=== PATIENT | female | born 1985 | race Caucasian/White ===

== ENCOUNTER → 2021-03-13 | Outpatient (CLI) | payer MEDICARE, OTHER ==
--- NOTE | 2021-03-14 09:58 | XR ---
EXAMINATION TYPE: XR scoliosis survey, 2 views of biopsy in 1 DATE OF EXAM: 03/13/2021 Comparison: None Clinical History: 35-year-old female R52. Gradual pain, surgery in 1999 and 2000. Findings: Extensive posterior thoracolumbar fusion changes are present. Possible break in the vertical stabiliz ation vincenzo at the L5-S1 junction on the right. There is an S-shaped rotary scoliosis of the thoracic and lumbar spine. Dextroconvex curvature of the thoracic spine has a Olivas angle of 32 degrees. Levoconvex scoliosis of the lumbar spine as a Olivas an gle of 51 degrees. Difficult to exclude some widening at the left SI joint. Shortness bilateral femoral necks and angula tion at the sacrococcygeal junction. Impression: 1. Extensive thoracolumbar fusion hardware extending down to the sacrum. Possible break in the vertic al stabilization vincenzo on the right at the L5-S1 junction. 2. Rotary S-shaped thoracolumbar scoliosis. Dextroconvex thoracic Olivas angle of 32 degrees and levoco nvex lumbar Olivas angle of 51 degrees. 3. Possible widening at the left SI joint.
== END | disposition home or self-care (01) ==
LOC: RADXRMAIN 15:10
PROVIDERS: ATTEND Physician Assistant Medical
DX: M41.85 Other forms of scoliosis, thoracolumbar region (principal); M43.25 Fusion of spine, thoracolumbar region
CPT/HCPCS: 72082

== ENCOUNTER → 2021-03-28 | Outpatient (CLI) | payer MEDICARE, OTHER ==
--- NOTE | 2021-03-28 16:32 | CT ---
EXAMINATION TYPE: CT lumbar spine wo con DATE OF EXAM: 03/28/2021 COMPARISON: None HISTORY: known rt vincenzo rx, r/o lt vincenzo fx CT DLP: 452.3 mGycm CONTRAST: None TECHNIQUE: CT of the lumbar spine is performed on a spiral scan at 3 mm thick sections. Reconstructed images are performed in the coronal and sagittal planes. FINDINGS: There is a severe scoliosis present with convexity to the left. Pedicle screws are present L5-S1-S2. There is diffuse loss of disc height throughout the thoracic spine. Vertebral body heights appear pre served. No focal disc herniations are evident. AP spinal canal stenosis is not identified.. Some foraminal narrowing is present. Severe stenosis is not identified. Attention is paid to the right L5-S1 junction. In the sagittal plane there appears to be a gap at the fixation vincenzo and pedicle screw junction of L5. Example image series 7 image 20 suggestive for fractu re similar to appears to be in the coronal plane, series 6 image 34. IMPRESSION: 1. Severe scoliosis with post fixation rods and pedicle screws present. 2. Findings suggestive for nondisplaced fixation vincenzo fracture at the right L5 pedicle screw junction level
== END | disposition home or self-care (01) ==
LOC: RADCTMAIN 07:10
PROVIDERS: ATTEND Physician Assistant Medical
DX: M41.86 Other forms of scoliosis, lumbar region (principal); Z98.1 Arthrodesis status
CPT/HCPCS: 72131

== ENCOUNTER → 2023-05-15 | Outpatient (CLI) | payer MEDICARE, OTHER ==
--- NOTE | 2023-05-15 11:31 | CT ---
EXAMINATION TYPE: CT thoracic spine wo con DATE OF EXAM: 05/15/2023 COMPARISON: None HISTORY: pre-op spinal sx CT DLP: 1173 mGycm Automated exposure control for dose reduction was used. Contrast: None Technique: Axial images 3 mm thick sections. Reconstructed images in the coronal and sagittal planes. FINDINGS: There is a scoliosis through the thoracic spine. Prior scoliosis surgery is evident with rods and fix ation hooks. No spinal canal stenosis is evident. Degenerative disc changes are present throughout th e thoracic spine. Vertebral body heights are preserved No focal disc herniations are identified. No spinal canal stenosis is evident. No obvious foraminal s tenosis is evident. IMPRESSION: 1. PRIOR SCOLIOSIS FIXATION RODS AND HOOKS WITHIN THE MID TO LOWER THORACIC SPINE.
--- NOTE | 2023-05-15 12:18 | MR ---
EXAMINATION TYPE: MR cervical spine wo con DATE OF EXAM: 05/15/2023 COMPARISON: None HISTORY: Neck pain CONTRAST: Performed utilizing 0 mL intravenous Gadavist gadolinium contrast. TECHNIQUE: Multiplanar multiecho imaging on a 3.0 Susan magnet is performed through the cervical spin e. FINDINGS: The craniovertebral junction is somewhat tight. No medullary kinking is evident. No tonsill ar descent is evident. Vertebral body alignment is straightened rate Cervical spine: No focal disc herniation or significant disc bulge is evident. No spinal canal steno sis or neural foraminal stenosis is present. IMPRESSION: 1. No suspicious acute changes evident. 2. Craniovertebral junction appears somewhat tight although no cord compression or stenosis is identi fied.
--- NOTE | 2023-05-15 22:09 | XR ---
EXAMINATION TYPE: XR scoliosis survey, AP and lateral views DATE OF EXAM: 05/15/2023 Comparison: 03/13/2021 Clinical History: 37-year-old female low back pain Findings: There is S-shaped rotary scoliosis with Saunders fixation rods across the thoracolumbar spine. Rede monstrated fracture along the inferior aspect of the right-sided Saunders vincenzo. Levoconvex scoliosis of the lumbar spine shows a Olivas angle of 56 degrees, relatively unchanged. Dextroconvex scoliosis o f the thoracic spine shows 40 degrees, also relatively unchanged. Some accentuated kyphosis at the th oracolumbar junction. Impression: Redemonstrated rotary S-shaped scoliosis with fixation Saunders rods. The right inferior vnicenzo is aga in noted to be fractured.
== END | disposition home or self-care (01) ==
LOC: RADMRIMAIN 08:18
PROVIDERS: ATTEND Family Medicine
DX: M41.85 Other forms of scoliosis, thoracolumbar region (principal); M54.2 Cervicalgia; Q78.9 Osteochondrodysplasia, unspecified; S09.90XD Unspecified injury of head, subsequent encounter; S32.009K Unspecified fracture of unspecified lumbar vertebra, subsequent encounter for fracture with nonunion; M43.8X9 Other specified deforming dorsopathies, site unspecified; R10.2 Pelvic and perineal pain; X58.XXXD Exposure to other specified factors, subsequent encounter; Z98.890 Other specified postprocedural states
CPT/HCPCS: 72082; 72128; 72141

== ENCOUNTER → 2023-07-10 | Outpatient (CLI) | payer MEDICARE, OTHER ==
--- NOTE | 2023-07-10 10:30 | CT ---
EXAMINATION TYPE: CT thor lumbar spine wo con DATE OF EXAM: 07/10/2023 COMPARISON: 03/28/2021 HISTORY: Pre-surgical scan CT DLP: 707.60 mGycm Automated exposure control for dose reduction was used. Contrast: None Technique: Axial images 3 mm thick sections. Reconstructed images in the coronal and sagittal planes. FINDINGS: There is prior fixation extending from S1 to the mid thoracic spine. Vertebral body heights appear pr eserved. There is diffuse loss of disc height throughout the thoracic and lumbar spine. Beam hardenin g artifact from fixation rods is present. No spinal canal stenosis is identified. No obvious foramina l narrowing stimulator leads entering the lower thoracic region and extends superiorly. IMPRESSION: 1. STABLE APPEARING POSTSURGICAL CHANGES. NO ACUTE CHANGES EVIDENT
--- NOTE | 2023-07-10 17:57 | MR ---
EXAMINATION TYPE: MR harvinderine/lspine wo con DATE OF EXAM: 07/10/2023 10:46 AM CLINICAL INDICATION:Female, 37 years old with history of M54.50 G89.29 S32.009K Q78.9 M43.8X9 Z01.818 ;, Neck and back pain, into buttocks. Hx scoliosis surgery. COMPARISON: CT 07/10/2023. TECHNIQUE: Multi planar, multi sequence imaging was performed utilizing: T1-weighted, T2-weighted, a nd turbo inversion recovery imaging of the thoracic and lumbar spine. IV Contrast: cc . None. FINDINGS: Alignment: The thoracic and lumbar vertebral bodies have preserved heights and alignment. Cord: The conus medullaris and the distal spinal cord appear unremarkable with regards to their signa l intensity and morphology. Bones/Discs: Multilevel degeneration changes throughout the spine with scoliosis change. Hardware is seen throughout the spine. No abnormal bony inversion recovery signal noted within the thoracic or elmer mbar spine.. Evaluation multiple areas of the spine is limited due to susceptibility artifact. [place] vertebral body hemangioma at L4 versus postsurgical change from fixation screw. THORACIC: No evidence significant spinal canal or neural foraminal stenosis. Spinal cord is within no rmal limits. Degeneration changes with limited evaluation at some of these levels [address] enosis due to susceptibility artifact. The neural foramen visualized appear patent. LUMBAR: T12-L1: No evidence of significant spinal canal stenosis or neural foraminal stenosis. L1-L2: No evidence of significant spinal canal stenosis. Facet joint arthropathy mild bilateral neura l foraminal stenosis. L2-L3: No evidence of significant spinal canal stenosis or neural foraminal stenosis. L3-L4: Disc bulge and facet joint arthropathy result in mild spinal canal and moderate bilateral neur al foraminal stenosis. L4-L5: Disc bulge and facet joint arthropathy result in mild spinal canal and moderate bilateral neur al foraminal stenosis. L5-S1: The disc is rounded posterior morphology without significant spinal canal stenosis. Facet join t arthropathy with moderate neural foraminal stenosis. Other findings: Left ovarian high T2 signal cyst measuring up to 3.9 cm layering debris suggested on a couple sequences. IMPRESSION: 1. Postsurgical changes of the spine which limits evaluation. 2. Similar scoliosis changes throughout the spine. 3. Evaluation the spinal canal neural foramen at multiple levels is limited. Where visualized the sp inal canal and neural foramen are patent. No abnormal bony edema identified. 4. Multilevel degeneration changes are superimposed on scoliosis with multilevel levels in the lumba r spine of moderate bilateral neural foraminal stenosis. 5. 3.9 cm left ovarian cyst with possible internal debris. Consider evaluation with ultrasound.
== END | disposition home or self-care (01) ==
LOC: RADMRIMAIN 08:08
PROVIDERS: ATTEND Neurological Surgery
DX: Z01.818 Encounter for other preprocedural examination (principal); M99.73 Connective tissue and disc stenosis of intervertebral foramina of lumbar region; M41.86 Other forms of scoliosis, lumbar region; M47.816 Spondylosis without myelopathy or radiculopathy, lumbar region; N83.292 Other ovarian cyst, left side; S32.009K Unspecified fracture of unspecified lumbar vertebra, subsequent encounter for fracture with nonunion; Q78.9 Osteochondrodysplasia, unspecified; M43.8X9 Other specified deforming dorsopathies, site unspecified; M54.50 Low back pain, unspecified; G89.29 Other chronic pain; X58.XXXD Exposure to other specified factors, subsequent encounter; Z98.890 Other specified postprocedural states
CPT/HCPCS: 72128; 72131; 72146; 72148

== ENCOUNTER → 2023-12-12 | Outpatient (CLI) | payer MEDICARE ==
--- NOTE | 2023-12-13 10:17 | XR ---
EXAMINATION TYPE: XR scoliosis survey DATE OF EXAM: 12/12/2023 COMPARISON: 05/15/2023 HISTORY: Scoliosis TECHNIQUE: AP and lateral views of the axial spine FINDINGS: Fixation rods and pedicle screws are present. This extends through the upper thoracic spine to the thoracolumbar junction. The previous lumbar fixation has been removed and new fixation rods a nd pedicle screws in place. No new fixation vincenzo fractures are identified. Degree of scoliosis appears unchanged. Some kyphosis remains at the thoracolumbar junction. IMPRESSION: 1. Repair of lumbar spine fixation rods placement of new hardware. No fracture or hardware at this t ashley. Thoracolumbar spine scoliosis positioning appears stable. [facility], , 12/13/2023 10:14 AM
== END | disposition home or self-care (01) ==
LOC: RADXRMAIN 07:55
PROVIDERS: ATTEND Family Medicine
DX: S32.009K Unspecified fracture of unspecified lumbar vertebra, subsequent encounter for fracture with nonunion (principal); M41.85 Other forms of scoliosis, thoracolumbar region; Y99.9 Unspecified external cause status
CPT/HCPCS: 72082

== ENCOUNTER → 2024-02-13 | Outpatient (CLI) | payer MEDICARE ==
--- NOTE | 2024-02-13 08:44 | XR ---
EXAMINATION TYPE: XR scoliosis survey DATE OF EXAM: 02/13/2024 COMPARISON: 12/12/2023 HISTORY: S32.009K UNSP FRACTURE OF UNSP LUM VERTEBRA, SUBS TECHNIQUE: AP lateral views of the thoracolumbar spine are submitted. FINDINGS: Again noted are Saunders rods which appear to be intact extending from the upper thoracic spine through the lumbosacral region. No new fixation vincenzo fractures are identified. Degree of scolio sis appears unchanged. Some kyphosis remains at the thoracolumbar junction. IMPRESSION: 1. Stable appearance of the Saunders rods without new fixation vincenzo fracture. 2. Stable scoliosis. 3. Severe multilevel degenerative disc disease. [facility], , 02/13/2024 8:42 AM
== END | disposition home or self-care (01) ==
LOC: RADXRMAIN 06:50
PROVIDERS: ATTEND Physician Assistant Surgical
DX: S32.009K Unspecified fracture of unspecified lumbar vertebra, subsequent encounter for fracture with nonunion (principal); M51.360 Other intervertebral disc degeneration, lumbar region with discogenic back pain only; G89.18 Other acute postprocedural pain; Q78.9 Osteochondrodysplasia, unspecified
CPT/HCPCS: 72082

== ENCOUNTER → 2024-06-10 | Outpatient (CLI) | payer MEDICARE ==
--- NOTE | 2024-06-10 09:21 | XR ---
EXAMINATION TYPE: XR spine complete AP and Lat DATE OF EXAM: 06/10/2024 8:56 AM COMPARISON: None. CLINICAL INDICATION: Female, 38 years old with history of S32.009K UNSP FRACTURE OF UNSP LUM VERTEBRA , SUBS, TECHNIQUE: Three views of the cervical spine are submitted. FINDINGS: The cervical spine is visualized in its entirety from C1 thru the top of T1 level. It is s atisfactory in alignment without evidence of acute fracture or dislocation. The pre-vertebral soft t issue appears within normal limits. The C1-C2 articulation is unremarkable on the open mouth view. Disc spaces are well preserved. IMPRESSION: No acute fracture or dislocation is seen in the cervical spine. Disc spaces are well pre served. THORACIC SPINE 2 VIEWS. TECHNIQUE: Frontal, lateral, and swimmer's view of thoracic spine are obtained. COMPARISON: None. FINDINGS: Elsie rods are in place. There is curvature convex to the right of the thoracic spine. Thoracic spine show satisfactory alignment without evidence of acute fracture or dislocation. Verte bral body heights are preserved. Mild scattered degenerative changes appreciated. Visualized ribs are unremarkable. IMPRESSION: No acute fracture or dislocation is seen in the thoracic spine. LUMBAR SPINE X-RAY: TECHNIQUE: Three views of the lumbar spine are submitted. COMPARISON: None. FINDINGS: There are 5 lumbar type vertebral bodies identified. The lumbar spine shows satisfactory alignment without evidence of acute fracture or dislocation. Vertebral body heights are within normal limits currently convexed to the left. Saunders rods in place. Multilevel degenerative changes. Th e overlying soft tissue appears unremarkable. IMPRESSION: No acute fracture or dislocation is seen in the lumbar spine. .ICD 10 NO FRACTURE, INIT IAL EVALUATION [facility], , 06/10/2024 9:19 AM
== END | disposition home or self-care (01) ==
LOC: RADXRMAIN 08:28
PROVIDERS: ATTEND Podiatrist
DX: S32.009K Unspecified fracture of unspecified lumbar vertebra, subsequent encounter for fracture with nonunion (principal); M54.6 Pain in thoracic spine; M54.50 Low back pain, unspecified; Q78.9 Osteochondrodysplasia, unspecified
CPT/HCPCS: 72082

== ENCOUNTER → 2024-06-18 | Outpatient (CLI) | payer MEDICARE ==
--- NOTE | 2024-06-18 10:57 | CT ---
EXAMINATION TYPE: CT pelvis wo con DATE OF EXAM: 06/18/2024 COMPARISON: Full spine x-ray. CLINICAL INDICATION: Female, 38 years old with history of S32.009K UNSP FRACTURE OF UNSP LUM VERTEBRA ; PH[facility], HX 4 BACK SX. PT STATES SHELLI THAT GOES INTO PELVIS IS SUSPICIOUS FOR FX. BONY PELVIS CT DLP: 395 mGycm Automated exposure control for dose reduction was used. FINDINGS: Levoconvex scoliosis in the lumbar spine is redemonstrated. June 10, 2024 persistent bilateral inter pedicular rods and screws in the lower lumbar spine extending into the sacrum and then through the bi lateral sacroiliac joints into the iliac bones. There is significant artifact making evaluation subop timal. Metallic hardware appears contiguous. There is no obvious fragmentation. No suspicious bowel dilatation. Anteverted uterus is seen. No free fluid in the pelvis is noted. IMPRESSION: FRACTURE OF THE METALLIC HARDWARE IS NOT IDENTIFIED. [facility], , 06/18/2024 10:55 AM
== END | disposition home or self-care (01) ==
LOC: RADCTMAIN 09:25
PROVIDERS: ATTEND Family Medicine
DX: S32.009K Unspecified fracture of unspecified lumbar vertebra, subsequent encounter for fracture with nonunion (principal); Q78.9 Osteochondrodysplasia, unspecified; M54.6 Pain in thoracic spine; G89.18 Other acute postprocedural pain; R10.2 Pelvic and perineal pain; X58.XXXA Exposure to other specified factors, initial encounter; N85.4 Malposition of uterus
CPT/HCPCS: 72192